=== PATIENT | male | born 1965 | race Caucasian/White ===

== ENCOUNTER → 2019-09-22 15:23 | Outpatient (BNVA) | payer OTHER, SELFPAY | PROVIDERS: Family Provider Emergency Medicine Emergency Medical Services; PCP Emergency Medicine Emergency Medical Services; Visit Provider Specialist | DX: R51 Headache (principal); G40.109 Localization-related (focal) (partial) symptomatic epilepsy and epileptic syndromes with simple partial seizures, not intractable, without status epilepticus; G47.33 Obstructive sleep apnea (adult) (pediatric) | CPT/HCPCS: 99214 ==

== ENCOUNTER 2019-09-29 07:11 | Outpatient (CLI) | payer OTHER, SELFPAY ==
--- NOTE | 2019-09-29 07:15 | MR_ITS ---
WS: [id number] MRI BRAIN WITHOUT CONTRAST HISTORY: R56.9 Unspecified convulsions COMPARISON: 12/14/2014 TECHNIQUE: Diffusion imaging, multiplanar T1, T2 and FLAIR imaging obtained. No evidence for acute infarct or hemorrhage. Porter-white matter differentiation is normal. There are a few scattered T2 and FLAIR signal hyperintensities in the periventricular white matter an d subcortical white matter. There are a few more nonspecific white matter signal abnormalities especi ally within the frontal lobes as compared to 12/14/2014. Minimal progression. No signal abnormality in the cary or cerebellum. Symmetric appearance of the temporal lobes with no volume loss or atrophy. Ventricles and extra-axial spaces are normal. No inferior displacement of cerebellar tonsils. The sella turcica and pituitary gland are unremarkabl e. Posterior fossa is also unremarkable. Dural venous sinuses and poarch of Obrien demonstrate no abnormality on this unenhanced studies. Paranasal sinuses: There is some very mild mucoperiosteal thickening throughout the sinus cavities. N o air-fluid levels. Mastoid air cells: Normal. Calvarium and scalp: Intact. MR/MR head wo con* [id number] IMPRESSION: 1. No acute infarct or hemorrhage. 2. Nonspecific FLAIR and T2 signal hyperintensities are minimal but mildly inc reased since 12/14/2014. Probably on the basis of microvascular ischemic disease .
== END 2019-09-29 07:12 | disposition home or self-care (01) ==
LOC: RADSHAW 07:13
PROVIDERS: Family Provider Emergency Medicine Emergency Medical Services; PCP Emergency Medicine Emergency Medical Services; Visit Provider Specialist
DX: R56.9 Unspecified convulsions (principal)
CPT/HCPCS: 70551

== ENCOUNTER 2019-12-30 09:55 | Emergency (ER) | payer OTHER, SELFPAY ==
[2019-12-30 09:58] VITALS: BP 139/63; PULSE 78; RESP 18; TEMP 36.6; O2SAT 94; BMI 36.5
--- NOTE | 2019-12-30 10:05 | ECG_ITS ---
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 Measurements Intervals [place] Rate: 75 P: 58 IA: 198 QRS: 86 QRSD: 104 T: 69 QT: 389 QTc: 435 Interpretive Statements SINUS RHYTHM Compared to ECG 01/29/2019 10:57:47 Sinus bradycardia no longer present Indeterminate axis no longer present Electronically Signed On 12-30-2019 18:50:27 CDT by Yuliet Almendarez M.D. [email or web address].RF Biocidics/store/NU/[id number] f
--- NOTE | 2019-12-30 10:06 | XRR_ITS ---
PROCEDURE INFORMATION: Exam: XR Chest, 1 View Exam date and time: 12/30/2019 10:30 AM Age: 54 years old Clinical indication: Type not specified; Patient HX: C/O chest pain/tightness; Additional info: Cp TECHNIQUE: Imaging protocol: XR of the chest Views: 1 view. COMPARISON: CR Chest 1 [place] [id number] 01/29/2019 11:51 AM FINDINGS: Lungs: Unremarkable. No consolidation. Pleural space: Unremarkable. No pleural effusion. No pneumothorax. Heart/Mediastinum: Unremarkable. No cardiomegaly. Bones/joints: Unremarkable. No interval changes seen comparing to prior XR/XR chest 1V portable [id number] IMPRESSION: No acute findings.
--- NOTE | 2019-12-30 10:06 | W.ED.CHESTPA ---
HPI - Chest Pain General: Chief Complaint: Chest Pain Stated Complaint: CHEST TIGHTNESS Time Seen by Provider: 12/30/19 10:01 History of Present Illness: HPI narrative: Patient has some high blood pressure last night and while he has some go to be able to get his blood pressure checked. He says at the [place] [facility] this morning has some chest tightness they did an EKG which was negative gave him an aspirin 325. Called the ambulance and sent him up here. Patient says he was without tightness or pain presently feels fine has no difficulty MD complaint: chest discomfort Pertinent past history: other (Hypertension) Onset (ago): minute(s) Timing of current episode: now resolved Prior episodes: No Onset: during rest Pain location: other (Tightness in chest no shortness of breath) Pain radiation: none Severity: mild Quality: tightness Relieving factors: other (Aspirin) Exacerbating factors: nothing Associated symptoms: Reports diaphoresis (Was diaphoretic at the [facility] denies any nausea or vomiting); Deny abdominal pain, dyspnea, nausea or vomiting Treatment prior to arrival: aspirin Review of Systems Const: Reports: diaphoresis (Was diaphoretic at the [facility] denies any nausea or vomiting) Eyes: Denies: change in vision or blurry vision ENMT: Denies: throat pain or nasal congestion Card: Reports: other (Chest tightness this morning at the [facility]); Denies: chest pain or dyspnea on exertion Resp: Denies: dyspnea, productive cough or non-productive cough GI: Denies: abdominal pain, nausea or vomiting : Denies: difficulty urinating Musc: Denies: extremity pain Skin/Breast: Denies: rash Neuro: Denies: headache(s) Psych: Denies: anxiety or depression Tanner/Lymph: Denies: easy bruising PFS ED PFSH: Social History Smoking and tobacco status: never smoked Alcohol intake: never Physical Exam Const: COMMON NORMALS: no acute distress, average body habitus and patient oriented x3 HENMT: COMMON NORMALS: normocephalic HEAD & SCALP: normal to inspection and normocephalic FACE & SINUS: normal facial exam Eye: COMMON NORMALS: conjunctivae normal GENERAL EYE: appearance normal, both eyes and all related structures CONJUNCTIVA: Yes conjunctivae normal Neck/C-Spine: COMMON NORMALS: no JVD Chest: COMMONS NORMALS: normal inspection of the chest Resp: COMMON NORMALS: normal respiratory effort and clear to auscultation bilaterally AUSCULTATION: clear to auscultation bilaterally Cardio: COMMON NORMALS: no JVD, regular rate and regular rhythm RATE: regular rate RHYTHM: regular rhythm GI: COMMON NORMALS: Normal to inspection, nondistended, normoactive bowel sounds present Extremity: COMMON NORMALS: normal to inspection and full ROM Neuro: COMMON NORMALS: patient oriented x3 Course Vital Signs: Vital signs: Vital Signs Temperature 97.8 F 12/30/19 09:58 Pulse Rate 78 12/30/19 09:58 Respiratory Rate 18 12/30/19 09:58 Blood Pressure 139/63 12/30/19 09:58 Pulse Oximetry 94 12/30/19 09:58 MDM - Chest Pain MDM Narrative: Medical decision making narrative: Heart score is 0-1 patient did opt to stay for second troponin patient declines. Discussed cardiac problems with patient patient and feel he has any. [facility] develop or return here. Lab Data: Labs: Lab Results 12/30/19 12/30/19 12/30/19 Range/Units 10:15 10:15 10:15 WBC 6.7 (4.0-10.0) 10^3/ uL RBC 4.65 (4.1-5.3) 10^6/u L Hgb 14.1 (11.7-16.6) g/dL Hct 42.4 (42.0-52.0) % MCV 91.2 (80-94) fL MCH 30.3 (28.0-34.0) pg MCHC 33.3 (30.0-36.0) g/dL RDW 12.7 (12.1-15.1) % Plt Count 267 (130-400) 10^3/c mm MPV 9.1 (7.4-10.4) fL Neut % (Auto) 52.0 % Lymph % (Auto) 37.9 % [place] % (Auto) 7.3 % Eos % (Auto) 1.9 % Baso % (Auto) 0.6 % Neut # (Auto) 3.49 (1.8-7.7) 10^3/u L Lymph # (Auto) 2.6 (0.8-4.8) 10^3/u L [place] # (Auto) 0.5 (0.2-0.9) 10^3/u L Eos # (Auto) 0.1 (0.0-0.8) 10^3/u L Baso # (Auto) 0.0 (0.0-0.1) 10^3/u L Nucleated RBC % (a uto) 0 % Nucleated RBCs # 0.0 /100WBC D-Dimer (0-0.59) ug/mIFE U Sodium 140 (136-145) mmol/L Potassium 4.8 (3.5-5.1) mmol/L Chloride 103 (98-107) mmol/L Carbon Dioxide 29 (22-29) mmol/L Anion Gap 12.8 (5-19) BUN 14 (6-20) mg/dL Creatinine 1.1 (0.7-1.2) mg/dL GFR Calculation 70.3 L (90-130) mL/min Glucose 143 H (65-115) mg/dL Calculated Osmolal ity 289 (285-295) mOsm/k g Calcium 9.9 (8.5-10.5) mg/dL Total Bilirubin 0.2 (0.15-1.2) mg/dL AST 21 (0-40) U/L ALT 30 (0-41) U/L Alkaline Phosphata se 180 H (40-130) IU/L Troponin T Baselin e 6 (0-15) ng/L Total Protein 6.8 (6.6-8.7) g/dL Albumin 4.4 (3.5-5.2) g/dL Globulin 2.4 (1.3-4.6) g/dL 12/30/19 Range/Units 10:15 WBC (4.0-10.0) 10^3/ uL RBC (4.1-5.3) 10^6/u L Hgb (11.7-16.6) g/dL Hct (42.0-52.0) % MCV (80-94) fL MCH (28.0-34.0) pg MCHC (30.0-36.0) g/dL RDW (12.1-15.1) % Plt Count (130-400) 10^3/c mm MPV (7.4-10.4) fL Neut % (Auto) % Lymph % (Auto) % [place] % (Auto) % Eos % (Auto) % Baso % (Auto) % Neut # (Auto) (1.8-7.7) 10^3/u L Lymph # (Auto) (0.8-4.8) 10^3/u L [place] # (Auto) (0.2-0.9) 10^3/u L Eos # (Auto) (0.0-0.8) 10^3/u L Baso # (Auto) (0.0-0.1) 10^3/u L Nucleated RBC % (a uto) % Nucleated RBCs # /100WBC D-Dimer <= 0.27 (0-0.59) ug/mIFE U Sodium (136-145) mmol/L Potassium (3.5-5.1) mmol/L Chloride (98-107) mmol/L Carbon Dioxide (22-29) mmol/L Anion Gap (5-19) BUN (6-20) mg/dL Creatinine (0.7-1.2) mg/dL GFR Calculation (90-130) mL/min Glucose (65-115) mg/dL Calculated Osmolal ity (285-295) mOsm/k g Calcium (8.5-10.5) mg/dL Total Bilirubin (0.15-1.2) mg/dL AST (0-40) U/L ALT (0-41) U/L Alkaline Phosphata se (40-130) IU/L Troponin T Baselin e (0-15) ng/L Total Protein (6.6-8.7) g/dL Albumin (3.5-5.2) g/dL Globulin (1.3-4.6) g/dL Discharge Plan Discharge Prescriptions: No Action aripiprazole [Abilify] 5 mg tablet 5 mg PO DAILY RF: 0 primidone 250 mg tablet 250 mg PO TID RF: 0 ascorbic acid (vitamin C) 500 mg capsule PO RF: 0 bupropion HCl [Wellbutrin SR] 150 mg tablet sustained-release 12 hr 150 mg PO BID RF: 0 Complete Multivitamin Tablet 1 tab PO DAILY RF: 0 venlafaxine [Effexor XR] 150 mg capsule,extended release 24hr 150 mg PO DAILY Qty: 30 RF: 5 levetiracetam [Keppra] 750 mg tablet 750 mg PO BID Qty: 60 RF: 5 cyclobenzaprine 10 mg tablet 10 mg PO TID PRN (Reason: muscle spasm) Qty: 20 RF: 0 simvastatin 20 mg tablet 40 mg PO DAILY RF: 0 Coding Level of Care Code ED Geospatial Extractor Analysis for Chg Fwd Exam Comprehensive
[2019-12-30 10:24] LABS: Basophils % 0.6 %; Eosinophils # 0.1 10^3/uL (0.0-0.8); Eosinophils % 1.9 %; Hematocrit 42.4 % (42.0-52.0); Hemoglobin 14.1 g/dL (11.7-16.6); Lymphocytes # 2.6 10^3/uL (0.8-4.8); Lymphocytes % 37.9 %; Mean Corpuscular HGB Conc 33.3 g/dL (30.0-36.0); Mean Corpuscular Hemoglobin 30.3 pg (28.0-34.0); Mean Corpuscular Volume 91.2 fL (80-94); Mean Platelet Volume 9.1 fL (7.4-10.4); Monocytes # 0.5 10^3/uL (0.2-0.9); Monocytes % 7.3 %; Neutrophils # 3.49 10^3/uL (1.8-7.7); Nucleated Red Blood Cells % 0 %; Platelet Count 267 10^3/cmm (130-400); Red Blood Count 4.65 10^6/uL (4.1-5.3); Red Cell Distribution Width 12.7 % (12.1-15.1); White Blood Count 6.7 10^3/uL (4.0-10.0)
[2019-12-30 10:38] LABS: D Dimer <= 0.27 ug/mIFEU (0-0.59)
[2019-12-30 10:42] LABS: Alanine Aminotransferase 30 U/L (0-41); Albumin Level 4.4 g/dL (3.5-5.2); Alkaline Phosphatase 180 IU/L (40-130); Anion Gap 12.8 (5-19); Aspartate Amino Transferase 21 U/L (0-40); Blood Urea Nitrogen 14 mg/dL (6-20); Calcium 9.9 mg/dL (8.5-10.5); Carbon Dioxide 29 mmol/L (22-29); Chloride 103 mmol/L (98-107); Globulin 2.4 g/dL (1.3-4.6); Glomerular Filtration Rate 70.3 mL/min (90-130); Glucose 143 mg/dL (65-115); Osmolality Calculated 289 mOsm/kg (285-295); Potassium 4.8 mmol/L (3.5-5.1); Sodium 140 mmol/L (136-145); Total Bilirubin 0.2 mg/dL (0.15-1.2); Total Protein 6.8 g/dL (6.6-8.7)
[2019-12-30 10:44] LABS: Troponin(5th) Baseline 6 ng/L (0-15)
[2019-12-30 11:00] VITALS: BP 139/63; PULSE 77; RESP 20; O2SAT 95
--- NOTE | 2019-12-30 11:08 | PC.NURSE ---
report received from [facility]
== END 2019-12-30 11:20 | disposition home or self-care (01) ==
PROVIDERS: Emergency Provider Nurse Practitioner Family; PCP Emergency Medicine Emergency Medical Services
DX: R07.9 Chest pain, unspecified (principal)
CPT/HCPCS: 12345; 36415; 71045; 80053; 84484; 85025; 85378; 93005; 99283; 99284

== ENCOUNTER → 2020-03-17 15:55 | Outpatient (BNVA) | payer OTHER, SELFPAY | PROVIDERS: PCP Emergency Medicine Emergency Medical Services; Visit Provider Internal Medicine | DX: R06.02 Shortness of breath (principal); R42 Dizziness and giddiness; E11.9 Type 2 diabetes mellitus without complications; G47.33 Obstructive sleep apnea (adult) (pediatric); I10 Essential (primary) hypertension; R07.9 Chest pain, unspecified | CPT/HCPCS: 80048; 84439; 84443 ==

== ENCOUNTER 2020-03-31 09:36 | Outpatient (CLI) | payer OTHER, SELFPAY ==
[2020-03-31 10:06] VITALS: BMI 36.5
--- NOTE | 2020-03-31 10:07 | ECG_ITS ---
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 Interpretive Statements NAME OF STUDY: LEXISCAN SESTAMIBI STRESS TEST INDICATION: [Chest Pain] Procedure: The baseline blood pressure was 144/85 mmHg with a heart rate of 67 bpm. The electrocardiogram showed normal sinus rhythm with normal ST and T's. The Lexiscan was infused for a duration of 20 seconds. A total of 0.4 mg of Lexiscan was infused. The stress phase was continued for a total of 5 minutes. Heart rate at end of stress phase was 71 bpm, with a blood pressure 151/79 mmHg. The EKG at the peak infusion revealed sinus rhythm with no significant ST-T wave changes. Sestamibi was injected 20 seconds after Lexiscan infusion. Blood pressure at the end of recovery phase was 151/86 mmHg with a heart rate of 72 bpm. No significant EKG changes during recovery phase. Conclusion: 1. Normal EKG response to Lexiscan infusion. 2. No Lexiscan induced chest pain or cardiac arrhythmia. 3. Normal blood pressure and heart rate response. 4. Sestamibi/sestamibi perfusion scan pending; see separate report. Electronically Signed On 03-31-2020 18:54:36 INTENSIVE CARE UNIT NURSE by Jesus Chau M.D. [id number]
--- NOTE | 2020-03-31 10:07 | NMCV_ITS ---
NM eliezer perf SPECT r/s* [id number] Tray Ying Age: 55 Gender: M : 1965 Exam Date: 03/31/2020 10:07 Ordering Phys: Jesus Chau M.D ([email or web address]) Technologist: BRITTANY Moser Exam Location: [facility] Indications: CHEST PAIN STRESS TEST [facility] IMAGE PROTOCOL Rest/Stress 1 Lexiscan Day Radiopharmaceutical Dose (mCi) Administration Site Administered by Rest: Tc-99m 11.0 IV BRITTANY Hi Sestamibi Stress:Tc-99m 32.5 IV BRITTANY Moser Sestamibety Rest: 31-Mar-2020 60 Discovery 630 Stress: 31-Mar-2020 30 Discovery 630 0.4mg Lexiscan. Images obtained in supine and prone position. SPECT RESULTS Technical Quality: Excellent Raw Data Analysis: Normal Image Corrections: No attenuation or motion correction applied Summed Stress Score: 0 Summed Rest Score: 0 Summed Difference Score: 0 PERFUSION FINDINGS There is homogenous uptake of radiotracer throughout the myocardium. No evidence of ischemia is noted. FUNCTIONAL RESULTS (calculated via Gated SPECT) Stress Image LV EF (%): 65 Stress EDV (mL):132 TID: 1.04 Stress ESV (mL):46 FUNCTIONAL FINDINGS: There is normal left ventricular systolic function. IMPRESSIONS 1. Normal myocardial perfusion imaging. No evidence of ischemia is noted. 2. LV systolic function is normal with EF of 65%. Jesus Chau MD (Electronically Signed) Final Date: 31 March 2020 16:47 S
[2020-03-31] MEDS: regadenoson 0.4 Mg/5 ml Syringe IVP (12:17)
[2020-03-31 12:31] VITALS: BP 151/86; PULSE 72
== END 2020-03-31 09:37 | disposition home or self-care (01) ==
LOC: RAD 09:43 → CDL 10:06
PROVIDERS: PCP Emergency Medicine Emergency Medical Services; Visit Provider Internal Medicine
DX: R07.9 Chest pain, unspecified (principal)
CPT/HCPCS: 78452; 93017; A9500; J2785

== ENCOUNTER → 2020-04-27 16:39 | Outpatient (BNVA) | payer OTHER, SELFPAY | PROVIDERS: PCP Emergency Medicine Emergency Medical Services; Visit Provider Internal Medicine | DX: Z20.828 Contact with and (suspected) exposure to other viral communicable diseases (principal) | CPT/HCPCS: 87635 ==

== ENCOUNTER 2020-05-02 08:09 | Day surgery (SDC) | payer OTHER, SELFPAY ==
[2020-04-27 10:36] VITALS: BMI 34.9
[2020-05-02 08:30] VITALS: BP 111/67; PULSE 67; RESP 18; TEMP 36.4; O2SAT 97
[2020-05-02] MEDS: sodium chloride 0.9% 1,000 ML 30 ML IV (08:43)
[2020-05-02 08:47] LABS: Glucose Point of Care 168 mg/dL (70-110)
--- NOTE | 2020-05-02 08:51 | ANES.PREANE2 ---
Pre-Anesthetic Assessment Pre-Anesthetic Assessment: Height/Weight: Height 1.73 m Weight 104.326 kg Temp Pulse Resp BP Pulse Ox 97.6 F 67 18 111/67 97 05/02/20 08:30 05/02/20 08:30 05/02/20 08:30 05/02/20 08:30 05/02/20 08:30 Preop Diagnosis: screening Proposed Procedure: Operation Date: 05/02/20 09:15 Proposed Procedures p Colonoscopy 90206 Z12.11(Not Applicable) - Demetrio Marrero MD Familial anesthetic complications: None Was Beta Melani taken within 24 hours: Yes Last intake: Intake Last Liquid Date 05/01/20 Last Liquid Time 20:00 Last Solid Date 04/30/20 Last Solid Time 20:00 Social: Social History: Tobacco (chews tobacco) and No alcohol Exam: Pre-Anes Outpt Exam: alert, oriented x 3, clear to auscultation bilaterally and regular rate & rhythm Airway: Cervical ROM: WNL MP: 4 Dentition: False Pulmonary: Pulmonary: Sleep apnea CV/HEM: CV/HEM: Angina (Stable) and HTN Comments: Hx chest pains - stress test obtained, negative for ischemia Metabolic: Metabolic: Hyperlipidemia Neuropsych: Neuropsych: Seizure Anesthetic Plan: ASA status: 3 Anesthesia: MAC Risk of > 500 ml blood loss (7ml/kg in children): No Meds/Allergies Current Medications: Current Medications Generic Name Dose Route Start Last Admin Trade Name Freq PRN Reason Stop Dose Admin Sodium Chloride 1,000 mls @ 30 ml s/hr 05/02/20 08:30 05/02/20 08:43 Sodium Chloride 0.9% IV 30 mls/hr .Q24H LAMONT Administration PFSH Anesthesia PFSH: Medical History (Updated 03/20/20 @ 18:24 by Jesus Chau M.D) Diabetes Hypertension Obstructive sleep apnea Secondarily generalized seizures Temporal lobe epilepsy Surgical History History of back surgery Family History (Updated 03/20/20 @ 18:20 by Jesus Chau M.D) Grandfather Stroke Social History Smoking and tobacco status: never smoked Alcohol intake: never History of recent travel: No Data Anesthesia Other Labs: Laboratory Results - last 48 hr 05/02/20 08:41 POC Glucose 168 H Cardiac Studies: No Data to Display
--- NOTE | 2020-05-02 09:13 | P.HP_ITS ---
Same Day Surgery H&P Indication for Procedure/HPI DATE OF PROCEDURE: May 02, 2020 CHIEF COMPLAINT/INDICATIONFOR SURGICAL PROCEDURE: Screening for colon cancer PREOP DIAGNOSIS: screening PLANNED PROCEDRUE: Operation Date: 05/02/20 09:15 Proposed Procedures p Colonoscopy 96060 Z12.11(Not Applicable) - Demetrio Marrero MD Medications/Allergies* Home Medications Medication Instructions Recorded Confirmed Type aripiprazole 5 mg tablet 5 mg PO DAILY 09/22/19 05/02/20 History ascorbic acid (vitamin C) 500 mg 1,000 mg PO DAILY 09/22/19 05/02/20 History capsule bupropion HCl 150 mg tablet,12 hr 150 mg PO BID 09/22/19 05/02/20 History sustained-release multivitamin,hr-gsch-vrmrgoaj 1 tab PO DAILY 09/22/19 04/27/20 History primidone 250 mg tablet 250 mg PO TID 09/22/19 04/27/20 History simvastatin 20 mg tablet 40 mg PO DAILY tab 09/22/19 04/27/20 History aspirin 325 mg tablet 325 mg PO DAILY 03/17/20 05/02/20 History duloxetine 60 mg capsule,delayed 60 mg PO DAILY 03/17/20 05/02/20 History release magnesium oxide 400 mg PO BID 03/17/20 05/02/20 History metformin 500 mg tablet 1,000 mg PO DAILY tab 03/17/20 05/02/20 History potassium citrate 10 mEq (1,080 2,160 mg PO BID 03/17/20 04/27/20 History mg) tablet,extended release Allergies/Adverse Reactions Allergy/AdvReac Type Severity Reaction Status Date / Time Penicillins Allergy RASH Verified 03/17/20 15:08 Current Medications: Generic Name Dose Route Start Last Admin Trade Name Freq PRN Reason Stop Dose Admin Sodium Chloride 1,000 mls @ 30 mls/hr 05/02/20 08:30 05/02/20 08:43 Sodium Chloride 0.9% IV 30 mls/hr .Q24H LAMONT Administration Pertinent History/Comorbid Conditions* Medical History (Updated 03/20/20 @ 18:24 by Jesus Chau M.D) Diabetes Hypertension Obstructive sleep apnea Secondarily generalized seizures Temporal lobe epilepsy Surgical History (Updated 03/20/20 @ 18:19 by Jesus Chau M.D) History of back surgery Family History (Updated 03/20/20 @ 18:20 by Jesus Chau M.D) Stroke Grandfather Social History Smoking and tobacco status: never smoked Alcohol intake: never History of recent travel: No Pertinent Exam Findings alert, oriented x 3, clear to auscultation bilaterally, regular rate & rhythm, operative site marked and procedure specific exam findings Recommendations Surgery/Procedure today Coding Level of Care Code Acute Cash Posting Specialist for Matti Monroe
--- NOTE | 2020-05-02 09:13 | W.PM.OPSUD ---
Surgery/Procedure H&P Update DATE OF PROCEDURE: May 02, 2020 PREOP DIAGNOSIS: screening PLANNED PROCEDURE: Operation Date: 05/02/20 09:15 Proposed Procedures p Colonoscopy 10951 Z12.11(Not Applicable) - Demetrio Marrero MD
[2020-05-02 10:15] VITALS: BP 106/57; PULSE 55; RESP 18; TEMP 36.2; O2SAT 95
[2020-05-02 10:28] VITALS: BP 117/62; PULSE 54; RESP 16; O2SAT 94
--- NOTE | 2020-05-02 18:37 | ANE.PACU2 ---
Inpatient post-anesthesia follow up: Airway intact: Yes Vital signs: Temperature 97.1 F Pulse Rate 54 Respiratory Rate 16 Blood Pressure 117/62 Pulse Oximetry 94 Oxygen Delivery Me thod Room Air Oxygen Flow Rate Fraction of Inspir ed Oxygen Hydration adequate: Yes Nausea and vomiting: No Pain level: 1 Mental status: Baseline
== END 2020-05-02 10:47 | disposition home or self-care (01) ==
PROVIDERS: PCP Emergency Medicine Emergency Medical Services; Visit Provider Internal Medicine
PROC: 0DJD8ZZ Inspection of Lower Intestinal Tract, Via Natural or Artificial Opening Endoscopic (ICD-10-PCS; CPT 45378; principal; 2020-05-02 09:15)
DX: Z12.11 Encounter for screening for malignant neoplasm of colon (principal); Z79.82 Long term (current) use of aspirin; E11.9 Type 2 diabetes mellitus without complications; I10 Essential (primary) hypertension; G47.33 Obstructive sleep apnea (adult) (pediatric); D12.2 Benign neoplasm of ascending colon; F17.220 Nicotine dependence, chewing tobacco, uncomplicated; G47.30 Sleep apnea, unspecified; E78.5 Hyperlipidemia, unspecified
CPT/HCPCS: 12345; 36416; 45385; 82962; J2704; J7030

== ENCOUNTER → 2020-05-10 10:31 | Outpatient (BNVA) | payer OTHER, SELFPAY | PROVIDERS: PCP Emergency Medicine Emergency Medical Services; Visit Provider Nurse Practitioner Family | DX: R68.89 Other general symptoms and signs (principal) | CPT/HCPCS: 87400 ==

== ENCOUNTER → 2020-05-14 10:36 | Outpatient (BNVA) | payer OTHER, SELFPAY | PROVIDERS: PCP Emergency Medicine Emergency Medical Services; Visit Provider Nurse Practitioner | DX: B34.9 Viral infection, unspecified (principal); Z12.11 Encounter for screening for malignant neoplasm of colon | CPT/HCPCS: 87635 ==

== ENCOUNTER 2021-01-11 11:07 | Emergency (ER) | payer OTHER, SELFPAY ==
[2021-01-11 11:10] VITALS: BP 124/59; PULSE 68; RESP 18; TEMP 36.6; O2SAT 96; BMI 31.9
[2021-01-11 11:21] VITALS: O2SAT 95
--- NOTE | 2021-01-11 11:21 | CT_ITS ---
WS: [id number] CT ANGIOGRAM CEREBRAL AND CAROTID ARTERIES HISTORY: Symptoms of acute CVA TECHNIQUE: CT angiogram is performed of the carotid and cerebral arteries. During arterial injection imaging is obtained from the skull vertex to the aortic arch in 1.25 mm imaging. Coronal and sagittal reformats are submitted. Additional multi planar reformats of the carotid and cerebral arteries are submitted, MIP imaging also reviewed. NASCET criteria utilized. [facility] at least one of these dose optimization techniques: automated exposure control; mA and/or kV adjust ment per patient size (includes targeted exams where dose is matched to clinical indication); or iter ative reconstruction. CONTRAST: Omnipaque 350; 95 mL IV. DLP: 2407.29 mGy-cm. COMPARISON: None available. Carotid Angiogram: Right carotid: Common carotid artery: Arises normally from the innominate artery. No significant plaque or stenosis. Internal carotid artery: No plaque or stenosis. External carotid artery: Patent. Left carotid: Common carotid artery: Arises normally from the aorta. No significant plaque or stenosis. Internal carotid artery: No plaque or stenosis. External carotid artery: Patent. Right vertebral artery: RIGHT vertebral artery is dominant and patent. Left vertebral artery: Very small caliber LEFT vertebral artery throughout its course but is patent. Subclavian arteries: No stenosis or significant abnormality. Upper thorax: Normal. Thyroid gland: Normal. Osseous structures: Mild straightening of the normal cervical lordosis. CEREBRAL ANGIOGRAM: Intracranial vertebral arteries: Small caliber but patent LEFT vertebral artery. RIGHT vertebral raoul ry is dominant. Basilar artery: No significant stenosis or occlusion. No aneurysm. Intracranial Internal carotid arteries: Demonstrates no significant stenosis or plaque. Middle cerebral arteries: Normal. Anterior cerebral arteries and ACOM: RIGHT A1 segment is absent or very hypoplastic. Dominant LEFT A1 segment. Posterior cerebral arteries and PCOM's: Posterior cerebral arteries are patent. The LEFT P-comm is ve ry poorly visualized and may be absent or hypoplastic. RIGHT P-comm is normal. Dural venous sinuses are normally enhancing. Mastoid air cells: Normal. Paranasal sinuses: Normal. Calvarium: Normal. CT/CT angio headneck* [id number] IMPRESSION: 1. Normal carotid arteries. 2. Hypoplastic or absent RIGHT A1 segment and LEFT posterior communicating art rafiq. Probably normal variants. 3. No acute thrombus or occlusions of the middle cerebral arteries. 4. Very small caliber LEFT vertebral artery but it is patent.
--- NOTE | 2021-01-11 11:21 | ECG_ITS ---
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
--- NOTE | 2021-01-11 11:21 | CT_ITS ---
WS: [id number] CT HEAD NONCONTRAST HISTORY: Symptoms of Acute Stroke, left-sided weakness. TECHNIQUE: Contiguous axial imaging performed through the brain in 2.5 mm imaging. Bone and soft tiss ue windows. Sagittal and coronal reformats reviewed. All CT scans at [facility] use at least one of these dose optimization techniques: automated exposure control; mA and/or kV adjustment per pa tient size (includes targeted exams where dose is matched to clinical indication); or iterative recon struction. DLP: 937.50 mGy-cm. COMPARISON: 01/29/2019 No acute intracranial hemorrhage, midline shift or mass effect. Very mild atrophy and chronic ischemic disease. No acute or subacute area of edema or loss of fortune-wh ite matter differentiation. Ventricles: Normal size with no hydrocephalus. Paranasal sinuses: As visualized are clear. Mastoid air cells: Well pneumatized. Calvarium and scalp: Skull is intact with no soft tissue edema or swelling. CT/CT head wo con* [id number] IMPRESSION: 1. No acute intracranial hemorrhage or edema. 2. Mild chronic microvascular ischemic disease. Notified Rickey Vivar DO at 01/11/2021 11:29 AM.
[2021-01-11] MEDS: iohexol 350 mg/mL 100 mL Btl IV (11:28)
[2021-01-11 11:33] LABS: Basophils % 0.5 %; Eosinophils # 0.2 10^3/uL (0.0-0.8); Eosinophils % 2.6 %; Hematocrit 39.4 % (42.0-52.0); Hemoglobin 13.1 g/dL (11.7-16.6); Lymphocytes % 29.4 %; Mean Corpuscular HGB Conc 33.2 g/dL (30.0-36.0); Mean Corpuscular Hemoglobin 30.7 pg (28.0-34.0); Mean Corpuscular Volume 92.3 fl (80-94); Mean Platelet Volume 9.4 fL (7.4-10.4); Monocytes # 0.4 10^3/uL (0.2-0.9); Monocytes % 6.2 %; Neutrophils # 4.06 10^3/uL (1.8-7.7); Nucleated Red Blood Cells % 0 %; Platelet Count 209 10^3/cmm (130-400); Red Blood Count 4.27 10^6/uL (4.1-5.3); White Blood Count 6.6 10^3/uL (4.0-10.0)
--- NOTE | 2021-01-11 11:33 | W.ED.NEUROSD ---
HPI - Neuro Symptoms/Deficit General: Chief Complaint: Neuro Symptoms/Deficit Stated Complaint: L SIDE WEAKNESs, blurry vision Time Seen by Provider: 01/11/21 11:08 History of Present Illness: HPI Narrative: 55-year-old male presents emergency room from work via EMS. 7:00's morning is looking at his computer screen while at work and started noticing blurry vision progressively worse had a notice a left-sided upper extremity and lower extremity weakness eventually got bad enough he called the emergency room by the time he arrived here he had a little bit of residual ataxia but mostly resolved. Patient is diabetic and hypertensive. He is on metoprolol and Metformin. He has no recent medication changes no history of stroke or heart disease. Patient was at approximately 4 hours since onset of symptoms Onset (ago): hour(s) Last Observed Normal: 12:39 Location: left arm and left leg History of same: No Severity: moderate Quality: weak Relieving factors: time Exacerbating factors: none Context: gradual onset On Anticoagulants: No Associated symptoms: Deny chest pain, cough, diaphoresis, fevers/chills, headache(s), anorexia, malaise, nausea, seizures, short of breath, syncope, tingling, vertigo, vomiting or weakness Treatments Prior to Arrival: none Review of Systems Const: Denies: malaise or diaphoresis ENMT: Denies: throat pain, ear or mastoid pain, nasal discharge or nasal congestion Card: Denies: chest pain or syncope Resp: Denies: dyspnea, productive cough or non-productive cough GI: Denies: nausea or vomiting : Denies: flank pain, dysuria, urinary frequency or urinary urgency Skin/Breast: Denies: rash or pruritus Neuro: Denies: headache(s) or vertigo PFSH ED PFSH: Medical History Diabetes Hypertension Obstructive sleep apnea Secondarily generalized seizures Temporal lobe epilepsy Surgical History History of back surgery Family History Grandfather Stroke Social History Smoking and tobacco status: never smoked Alcohol intake: never History of recent travel: No NIH stroke score NIHSS: Level Of Consciousness - 1a: 0 Level Of Consciousness Questions - 1b: Both Correct Level Of Consciousness Commands - 1c: Both Correct Best Gaze - 2: Normal Visual Avila - 3: No Visual Loss Facial Palsy - 4: Normal Motor Arm Right - 5: No Drift Motor Arm Left - 5: No Drift Motor Leg Right - 6: No Drift Motor Leg Left - 6: No Drift Limb Ataxia - 7: Present In One Limb Sensory - 8: Normal Best Language - 9: No Aphasia Dysarthia - 10: Normal Extinction And Inattention - 11: 0 Score: Total Score: 1 Physical Exam Const: COMMON NORMALS: no acute distress GENERAL APPEARANCE: cooperative and comfortable ORIENTATION/CONSCIOUSNESS: Yes awake, Yes oriented to person, Yes oriented to place and Yes oriented to time HENMT: COMMON NORMALS: normocephalic, atraumatic and hearing grossly normal bilaterally HEAD & SCALP: normocephalic and atraumatic Neck/C-Spine: COMMON NORMALS: no JVD Resp: COMMON NORMALS: normal respiratory effort, No retractions and No use of accessory muscles Cardio: COMMON NORMALS: no JVD, regular rate, regular rhythm and No murmurs present (Cardio) RATE: regular rate RHYTHM: regular rhythm GI: COMMON NORMALS: Soft to palpation and No hepatosplenomegaly present AUSCULTATION: Yes normoactive bowel sounds PALPATION: Yes Soft to palpation, No Tenderness to palpation present (GI), No Guarding due to palpation present (GI) and Yes No hepatosplenomegaly present Extremity: COMMON NORMALS: normal to inspection, capillary refill normal, no clubbing, cyanosis or edema, no calf tenderness and no pedal edema Neuro: SENSORIUM/ORIENTATION: Yes oriented to person, Yes oriented to place and Yes oriented to time Skin: COMMON NORMALS: no rashes or lesions noted GENERAL SKIN EXAM: no rashes or lesions noted Course Vital Signs: Vital signs: Vital Signs Temperature 98 F 01/11/21 11:10 Pulse Rate 60 01/11/21 12:57 Respiratory Rate 18 01/11/21 12:57 Blood Pressure 115/64 01/11/21 12:57 Pulse Oximetry 97 01/11/21 12:57 MDM - Neuro Symptoms/Deficit MDM Narrative: Medical decision making narrative: All symptoms resolved at this point. Given the difficulty they had with [id number] using the left leg has resolved. Will discharge him home on aspirin return if he has any further problems follow-up with his primary care doctor. Imaging and labs reviewed as on the chart and discussed with patient Lab Data: Labs: Lab Results 01/11/21 01/11/21 01/11/21 Range/Units 11:25 11:25 11:25 WBC 6.6 (4.0-10.0) 10^3/ uL RBC 4.27 (4.1-5.3) 10^6/u L Hgb 13.1 (11.7-16.6) g/dL Hct 39.4 L (42.0-52.0) % MCV 92.3 (80-94) fl MCH 30.7 (28.0-34.0) pg MCHC 33.2 (30.0-36.0) g/dL RDW 13.0 (12.1-15.1) % Plt Count 209 (130-400) 10^3/c mm MPV 9.4 (7.4-10.4) fL Neut % (Auto) 61.0 % Lymph % (Auto) 29.4 % Edwards % (Auto) 6.2 % Eos % (Auto) 2.6 % Baso % (Auto) 0.5 % Neut # (Auto) 4.06 (1.8-7.7) 10^3/u L Lymph # (Auto) 2.0 (0.8-4.8) 10^3/u L Edwards # (Auto) 0.4 (0.2-0.9) 10^3/u L Eos # (Auto) 0.2 (0.0-0.8) 10^3/u L Baso # (Auto) 0.0 (0.0-0.1) 10^3/u L Nucleated RBC % (a uto) 0 % Nucleated RBCs # 0.0 /100WBC PT 14.70 (12.1-14.9) SECO NDS INR 1.12 (0.8-1.2) APTT 32.4 (23.9-36.7) SECO NDS Sodium 135 L (136-145) mmol/L Potassium 4.3 (3.5-5.1) mmol/L Chloride 98 (98-107) mmol/L Carbon Dioxide 29 (22-29) mmol/L Anion Gap 12.3 (5-19) BUN 12 (6-20) mg/dL Creatinine 0.9 (0.7-1.2) mg/dL GFR Calculation 88.3 L (90-130) mL/min Glucose 128 H (65-115) mg/dL Calculated Osmolal ity 281 L (285-295) mOsm/k g Calcium 8.7 (8.5-10.5) mg/dL Total Bilirubin 0.2 (0.15-1.2) mg/dL AST 18 (0-40) U/L ALT 21 (0-41) U/L Alkaline Phosphata se 187 H (40-130) IU/L Total Protein 6.1 L (6.6-8.7) g/dL Albumin 3.9 (3.5-5.2) g/dL Globulin 2.2 (1.3-4.6) g/dL Discharge Plan Discharge Patient Disposition: Home Clinical Impression: Transient cerebral ischemia Condition: Stable Prescriptions: New aspirin 81 mg tablet,delayed release (DR/EC) 81 mg PO DAILY Qty: 30 RF: 0 No Action aripiprazole [Abilify] 5 mg tablet 5 mg PO DAILY RF: 0 primidone 250 mg tablet 750 mg PO DAILY RF: 0 ascorbic acid (vitamin C) 500 mg capsule 1,000 mg PO DAILY RF: 0 bupropion HCl [Wellbutrin SR] 150 mg tablet sustained-release 12 hr 150 mg PO BID RF: 0 simvastatin 20 mg tablet 40 mg PO DAILY RF: 0 metformin 500 mg tablet 500 mg PO BID RF: 0 potassium citrate 10 mEq (1,080 mg) tablet extended release 2,160 mg PO BID RF: 0 magnesium oxide 400 mg magnesium tablet 400 mg PO BID RF: 0 duloxetine [Cymbalta] 60 mg capsule,delayed release(DR/EC) 60 mg PO DAILY RF: 0 levetiracetam [Keppra] 750 mg tablet 750 mg PO BID Qty: 180 RF: 1 metoprolol tartrate 50 mg tablet 50 mg PO BID Qty: 60 RF: 2 multivitamin Tablet 1 tab PO DAILY RF: 0 Discharge Orders: Discharge ED (Routine); Ordered 01/11/21 Ordered By: Rickey Vivar Referrals: Duane Rodriguez DO [Primary Care Provider] - Discharge Diet: Usual diet Discharge Activity: Resume usual activity Patient Instructions: Opioid Safety Activity Restrictions/Additional Instructions: Start aspirin daily. Return to be reevaluated for recurrence of symptoms. Follow-up with your primary care doctor within the week. Coding Level of Care Code ED Advertising Operations Manager for Matti Fwjojo Exam Comprehensive
[2021-01-11 11:46] LABS: INR 1.12 (0.8-1.2)
[2021-01-11 11:47] LABS: Partial Thromboplastin Time 32.4 SECONDS (23.9-36.7)
[2021-01-11 11:50] LABS: Alanine Aminotransferase 21 U/L (0-41); Albumin Level 3.9 g/dL (3.5-5.2); Alkaline Phosphatase 187 IU/L (40-130); Anion Gap 12.3 (5-19); Aspartate Amino Transferase 18 U/L (0-40); Blood Urea Nitrogen 12 mg/dL (6-20); Calcium 8.7 mg/dL (8.5-10.5); Carbon Dioxide 29 mmol/L (22-29); Chloride 98 mmol/L (98-107); Globulin 2.2 g/dL (1.3-4.6); Glomerular Filtration Rate 88.3 mL/min (90-130); Glucose 128 mg/dL (65-115); Osmolality Calculated 281 mOsm/kg (285-295); Potassium 4.3 mmol/L (3.5-5.1); Sodium 135 mmol/L (136-145); Total Bilirubin 0.2 mg/dL (0.15-1.2); Total Protein 6.1 g/dL (6.6-8.7)
[2021-01-11 12:28] VITALS: BP 118/61; PULSE 60; O2SAT 96
[2021-01-11 12:57] VITALS: BP 115/64; PULSE 60; RESP 18; O2SAT 97
== END 2021-01-11 12:53 | disposition home or self-care (01) ==
PROVIDERS: Emergency Provider Family Medicine; PCP Emergency Medicine Emergency Medical Services
DX: G45.9 Transient cerebral ischemic attack, unspecified (principal); Z79.84 Long term (current) use of oral hypoglycemic drugs; E11.9 Type 2 diabetes mellitus without complications; I10 Essential (primary) hypertension
CPT/HCPCS: 70450; 70496; 70498; 80053; 85025; 85610; 85730; 93005; 99284; Q9967

== ENCOUNTER → 2021-02-27 15:33 | Outpatient (BNVA) | payer OTHER, SELFPAY | PROVIDERS: PCP Emergency Medicine Emergency Medical Services; Visit Provider Specialist | DX: G31.84 Mild cognitive impairment of uncertain or unknown etiology (principal); Z86.73 Personal history of transient ischemic attack (TIA), and cerebral infarction without residual deficits; G40.109 Localization-related (focal) (partial) symptomatic epilepsy and epileptic syndromes with simple partial seizures, not intractable, without status epilepticus | CPT/HCPCS: 99214; 99215 ==

== ENCOUNTER → 2021-06-12 16:15 | Outpatient (BNVA) | payer OTHER, SELFPAY | PROVIDERS: PCP Emergency Medicine Emergency Medical Services; Visit Provider Internal Medicine | DX: I10 Essential (primary) hypertension (principal); E11.9 Type 2 diabetes mellitus without complications; R06.02 Shortness of breath; G45.9 Transient cerebral ischemic attack, unspecified; R07.9 Chest pain, unspecified | CPT/HCPCS: 80048; 83880 ==

== ENCOUNTER 2021-07-19 09:09 | Outpatient (CLI) | payer OTHER, SELFPAY ==
--- NOTE | 2021-07-19 09:15 | USCV_ITS ---
Tray Ying Age: 56 Gender: M : 1965 Exam Date: 07/19/2021 10:03 Ordering Phys: Jesus Chau M.D ([email or web address]) Technologist: Simone Carr [place] [facility] [place]: [place] pain BP: 108 / 70 HR: 79 Rhythm: Sinus Technical Quality: Adequate MEASUREMENTS (Male / Female) Normal Values 2D ECHO LV Diastolic Diameter PLAX 4.4 cm 4.2 - 5.9 / 3.9 - 5.3 cm LV Systolic Diameter PLAX 3.0 cm IVS Diastolic Thickness 1.4 cm 0.6 - 1.0 / 0.6 - 0.9 cm IVS Systolic Thickness 1.8 cm LVPW Diastolic Thickness 1.5 cm 0.6 - 1.0 / 0.6 - 0.9 cm LVPW Systolic Thickness 1.5 cm LVOT Diameter 2.0 cm LV Ejection Fraction 2D Teich 62.0 % LV Ejection Fraction MOD 2C 67.3 % LV Ejection Fraction 2C AL 66.6 % LA Diameter 3.4 cm LA Width 2.8 cm LA Height 4.5 cm RA Width 2.6 cm RA Height 4.4 cm Aorta at Sinotubular Diameter 2.4 cm M-MODE Aortic Annulus Diameter 3.0 cm LA Ao Ratio MM 1.2 MV E Point Septal Separation 0.7 cm DOPPLER AV Peak Velocity 134.0 cm/s LVOT Peak Velocity 102.0 cm/s AV Area Cont Eq vti 2.6 cm squared AV Area Cont Eq pk 2.4 cm squared MV Area PHT 3.1 cm squared Mitral E to A Ratio 1.1 MV E' Velocity 44.0 cm/s Mitral E to MV E' Ratio 10.4 Mitral E to LV E' Lateral Ratio 10.0 Mitral E to LV E' Septal Ratio 10.9 Right Atrial Pressure 3.0 mmHg RV Acceleration Time 0.1 s RV Ejection Time 0.3 s RV AcT/ET 0.4 FINDINGS Left Ventricle Normal left ventricular size. LV systolic function is normal with EF of 55-60%. No regional wall motion abnormalities. Diastolic function is normal Right Ventricle The right ventricle is normal in size and function. Right Atrium The right atrium is normal in size. Left Atrium The left atrium is normal in size. Mitral Valve Structurally normal mitral valve without significant stenosis or prolapse. There is trace mitral regurgitation. Aortic Valve Structurally normal aortic valve without significant sclerosis or stenosis. There is mild aortic regurgitation. Tricuspid Valve Structurally normal tricuspid valve without significant stenosis. There is trace regurgitation. Insufficient TR jet to calculate RVSP. Pulmonic Valve Structurally normal pulmonic valve without significant stenosis. There is no pulmonic regurgitation. Pericardium Normal pericardium without effusion. Aorta Normal ascending aorta dimension. CONCLUSIONS LV systolic function is normal with EF 55-60%. Diastolic function is normal. Trace mitral regurgitation, mild aortic regurgitation and trace tricuspid regurgitation noted. No comparison studies are available Jesus Chau MD (Electronically Signed) Final Date: 28 July 2021 11:37 S
== END 2021-07-19 09:10 | disposition home or self-care (01) ==
LOC: RAD 09:11
PROVIDERS: PCP Emergency Medicine Emergency Medical Services; Visit Provider Internal Medicine
DX: R06.02 Shortness of breath (principal); R07.9 Chest pain, unspecified; I08.3 Combined rheumatic disorders of mitral, aortic and tricuspid valves
CPT/HCPCS: 93306

== ENCOUNTER → 2021-09-26 13:17 | Outpatient (BNVA) | payer OTHER, SELFPAY | PROVIDERS: PCP Emergency Medicine Emergency Medical Services; Visit Provider Specialist | DX: G31.84 Mild cognitive impairment of uncertain or unknown etiology (principal); G40.109 Localization-related (focal) (partial) symptomatic epilepsy and epileptic syndromes with simple partial seizures, not intractable, without status epilepticus; Z86.73 Personal history of transient ischemic attack (TIA), and cerebral infarction without residual deficits | CPT/HCPCS: 99214 ==

== ENCOUNTER → 2021-10-13 10:01 | Outpatient (BNVA) | payer OTHER, SELFPAY | PROVIDERS: PCP Emergency Medicine Emergency Medical Services; Visit Provider Internal Medicine | DX: I10 Essential (primary) hypertension (principal); G47.33 Obstructive sleep apnea (adult) (pediatric); E11.9 Type 2 diabetes mellitus without complications; Z79.84 Long term (current) use of oral hypoglycemic drugs | CPT/HCPCS: 99213 ==

== ENCOUNTER 2021-11-02 20:00 | Outpatient (CLI) | payer OTHER, SELFPAY | END 2021-11-02 20:01 | disposition home or self-care (01) | LOC: SLEEP 11-03 08:11 | PROVIDERS: PCP Emergency Medicine Emergency Medical Services; Visit Provider Psychiatry & Neurology Psychiatry | DX: G47.33 Obstructive sleep apnea (adult) (pediatric) (principal) | CPT/HCPCS: 95810 ==

== ENCOUNTER 2022-05-31 22:04 | Emergency (ER) | payer OTHER, SELFPAY ==
[2022-05-31 22:14] VITALS: BP 154/72; PULSE 80; RESP 18; TEMP 36.5; O2SAT 99; BMI 33.4
--- NOTE | 2022-05-31 23:02 | CTR_ITS ---
PROCEDURE INFORMATION: Exam: CT Head Without Contrast Exam date and time: 05/31/2022 11:29 PM Age: 57 years old Clinical indication: Pain; Headache; Patient HX: C/O COLVIN with nausea after having moderna vaccine yesterday. History of epilespy and TIA. ; Additional info: Worst COLVIN of life, nausea TECHNIQUE: Imaging protocol: Computed tomography of the head without contrast. Radiation optimization: All CT scans at this facility use at least one of these dose optimization techniques: automated exposure control; mA and/or kV adjustment per patient size (includes targeted exams where dose is matched to clinical indication); or iterative reconstruction. Other protocol: This patient has received 0 known CTs and 0 known cardiac nuclear medicine studies in the 12 months prior to the current study. COMPARISON: CT head wo con* [id number] 01/11/2021 11:07 AM RADIATION DOSE METRICS: Total DLP (mGy-cm): 1992.88 FINDINGS: Brain: Normal. No hemorrhage. Unremarkable white matter. No mass effect. Cerebral ventricles: No ventriculomegaly. Paranasal sinuses: Visualized sinuses are unremarkable. No fluid levels. Mastoid air cells: Visualized mastoid air cells are well aerated. Bones/joints: Unremarkable. No acute fracture. Soft tissues: Unremarkable. Other findings: Study motion degraded. CT/CT head wo con* [id number] IMPRESSION: No acute intracranial abnormality.
--- NOTE | 2022-05-31 23:02 | ED_ITS ---
Documented by User: SARAH BETH Ivy 05/31/22 23:24 HPI - Headache General: Chief Complaint: Headache Stated Complaint: Headache\Had Covid shot yesterday Time Seen by Provider: 05/31/22 22:13 Source: patient and family Mode of arrival: ambulatory Limitations: no limitations History of Present Illness: Patient is a very nice 57-year-old male with an extensive medical history here for concerns of a severe headache. Patient states he took the first dose of his COVID immunization series yesterday and states by that evening he began developing a headache. He is currently rating his headache at a 10/10 and states it is debilitating. He endorses nausea with no vomiting. Patient tells me he has no history of headaches. He cannot tell me any worsening or alleviating factors to his pain. It does not seem to be affected by position, light, sound. Looking at previous documentation it does look like he was seen by Dr. Mata on 08/2019 for complaints of severe head aches. MD elicited complaint: headache Onset description: gradually Location: generalized Severity: severe Pain scale (0-10): 10 Exacerbating factors: none Relieving factors: nothing Associated symptoms: Reports nausea; Deny chest pain, confusion, fever(s), malaise, rash or vomiting Treatments prior to arrival: acetaminophen and ibuprofen Review of Systems Const: Denies: fever(s), chills, body aches, fatigue or malaise Eyes: Denies: change in vision, blurry vision, blind spots, photophobia or eye discomfort Card: Denies: chest pain Resp: Denies: dyspnea GI: Reports: nausea; Denies: abdominal pain or vomiting Musc: Denies: neck pain Skin/Breast: Denies: rash Neuro: Reports: headache(s); Denies: numbness in extremities, weakness in extremities, sensory changes, lack of coordination, frequent falls, dizziness, vertigo, confusion, behavioral changes, Slurred speech present, difficulty communicating thoughts or seizure- like activity PFS ED PFSH: Medical History Diabetes Hypertension Obstructive sleep apnea Secondarily generalized seizures Temporal lobe epilepsy Surgical History History of back surgery Family History Grandfather Stroke Social History Smoking and tobacco status: never smoked Alcohol intake: never History of recent travel: No Physical Exam Const: COMMON NORMALS: average body habitus, patient oriented x3, no limitations, healthy appearing, alert and well nourished GENERAL APPEARANCE: cooperative and in distress (appears uncomfortable secondary to pain) ORIENTATION/CONSCIOUSNESS: Yes awake, Yes oriented to person, Yes oriented to place and Yes oriented to time HENMT: COMMON NORMALS: normocephalic and atraumatic HEAD & SCALP: normal to inspection, normocephalic and atraumatic FACE & SINUS: normal facial exam Eye: COMMON NORMALS: Equal, round and reactive pupils present and EOMs intact bilaterally GENERAL EYE: appearance normal, both eyes and all related structures and normal light reflex PUPIL: Yes Equal, round and reactive pupils present DIRECT OPHTHALMOSCOPY: Yes normal light reflex Neck/C-Spine: COMMON NORMALS: full ROM, no lymphadenopathy and no meningeal signs Resp: COMMON NORMALS: normal respiratory effort and clear to auscultation bilaterally AUSCULTATION: clear to auscultation bilaterally Cardio: COMMON NORMALS: regular rate and regular rhythm RATE: regular rate RHYTHM: regular rhythm Extremity: COMMON NORMALS: normal to inspection GENERAL: Yes normal exam except as noted Neuro: LOYD COMA SCALE: document GCS findings [place] coma scale eye opening: Spontaneous [place] coma scale verbal response: Orientated [place] coma scale motor response: Obey commands Loyd coma scale total score: 15 COMMON NORMALS: patient oriented x3, CN's II-XII intact bilaterally, moves all extremities, no focal motor deficits, no sensory deficits noted and gait normal SENSORIUM/ORIENTATION: Yes alert, Yes oriented to person, Yes oriented to place and Yes oriented to time MENINGEAL SIGNS: Yes no meningeal signs SPEECH: speech normal GAIT: Yes Normal gait present MOTOR EXAM: 5/5 motor strength present throughout Skin: COMMON NORMALS: no rashes or lesions noted GENERAL SKIN EXAM: no rashes or lesions noted Course Vital Signs: Vital signs: Vital Signs Temperature 97.7 F 05/31/22 22:14 Pulse Rate 80 05/31/22 23:04 Respiratory Rate 18 05/31/22 23:04 Blood Pressure 180/76 05/31/22 23:04 Pulse Oximetry 98 05/31/22 23:04 Oxygen Delivery Me thod 05/31/22 23:04 MDM - Headache Lab Data Radiology Impressions Head CT 05/31/22 23:02 IMPRESSION: No acute intracranial abnormality. Discharge Plan Discharge Patient Disposition: Home Clinical Impression: Headache Condition: Stable Prescriptions: No Action aripiprazole [Abilify] 5 mg tablet 5 mg PO DAILY ascorbic acid (vitamin C) 500 mg capsule 1,000 mg PO DAILY bupropion HCl [Wellbutrin SR] 150 mg tablet sustained-release 12 hr 150 mg PO BID simvastatin 20 mg tablet 40 mg PO DAILY Rx Instructions: TAKE IN THE EVENING metformin 500 mg tablet 500 mg PO BID potassium citrate 10 mEq (1,080 mg) tablet extended release 2,160 mg PO BID magnesium oxide 400 mg magnesium tablet 400 mg PO BID duloxetine [Cymbalta] 60 mg capsule,delayed release(DR/EC) 60 mg PO DAILY Rx Instructions: TAKE IN THE EVENING primidone 250 mg tablet 500 mg PO DAILY Rx Instructions: TAKE IN THE EVENING doxycycline hyclate 100 mg tablet 100 mg PO BID 7 Days Qty: 14 0RF prednisone 20 mg tablet 20 mg PO DAILY Qty: 5 0RF albuterol sulfate [Ventolin HFA] 90 mcg/actuation HFA aerosol inhaler 1 - 2 puff inhalation Q6H PRN (Reason: shortness of breath or wheezing) Qty: 8.5 0RF benzonatate 200 mg capsule 200 mg PO BID PRN (Reason: cough) Qty: 14 0RF metoprolol tartrate 50 mg tablet 50 mg PO BID Qty: 180 3RF levetiracetam [Keppra] 1,000 mg tablet 500 mg PO BID Qty: 180 3RF galantamine 8 mg tablet 8 mg PO BID Qty: 180 3RF Rx Instructions: administer with AM and PM meals multivitamin Tablet 1 tab PO DAILY aspirin 81 mg tablet,delayed release (DR/EC) 81 mg PO DAILY Qty: 30 0RF Discharge Orders: Discharge ED (Routine); Ordered 06/01/22 Ordered By: Rhonda Weems Referrals: Duane Rodriguez DO [Primary Care Provider] - 1-3 days Discharge Diet: Advance as tolerated Discharge Activity: Resume usual activity Patient Instructions: General Headache (ED) Coding Level of Care Code ED Sales Engagement Executive for Chg Fwd Exam Comprehensive Documented by User: Rhonda Weems MD 06/01/22 00:23 HPI - Headache General: Chief Complaint: Headache Stated Complaint: Headache\Had Covid shot yesterday Time Seen by Provider: 05/31/22 22:13 PFSH ED PFSH: Medical History Diabetes Hypertension Obstructive sleep apnea Secondarily generalized seizures Temporal lobe epilepsy Surgical History History of back surgery Family History Grandfather Stroke Social History Smoking and tobacco status: never smoked Alcohol intake: never History of recent travel: No Physical Exam Neuro: LOYD COMA SCALE: document GCS findings [place] coma scale total score: 15 Course Vital Signs: Vital signs: Vital Signs Temperature 97.7 F 05/31/22 22:14 Pulse Rate 80 05/31/22 23:04 Respiratory Rate 18 05/31/22 23:04 Blood Pressure 180/76 05/31/22 23:04 Pulse Oximetry 98 05/31/22 23:04 Oxygen Delivery Me thod 05/31/22 23:04 MDM - Headache Medical Decision Making Patient presents with a headache he does have a long history of headaches this is not the worst headache of his life his head CT here is normal no signs of meningitis or subarachnoid hemorrhage his headache is since resolved with Toradol and Reglan he is stable for discharge he is to follow-up his PCP and return if worsening he understands agrees to plan. Lab Data Radiology Impressions Head CT 05/31/22 23:02
[2022-05-31 23:04] VITALS: BP 180/76; PULSE 80; RESP 18; O2SAT 98
[2022-05-31] MEDS: diphenhydrAMINE 50 mg/mL SDV 1mL IVP (23:16)
[2022-05-31] MEDS: ondansetron 2 mg/ML SDV 2 mL 4 MG IVP (23:16)
[2022-05-31] MEDS: dexamethasone 10 mg/mL INJ 8 MG IV (23:17)
[2022-05-31] MEDS: metoclopramide 5 mg/mL SDV 2 mL 10 MG IVP (23:49)
[2022-05-31] MEDS: ketorolac 30 mg/mL INJ 15 MG IVP (23:49)
[2022-06-01 00:36] VITALS: BP 186/85; PULSE 99; RESP 16; O2SAT 99
== END 2022-06-01 00:39 | disposition home or self-care (01) ==
PROVIDERS: Emergency Provider Emergency Medicine; PCP Emergency Medicine Emergency Medical Services
DX: R51.9 Headache, unspecified (principal); I10 Essential (primary) hypertension; E11.9 Type 2 diabetes mellitus without complications
CPT/HCPCS: 70450; 96374; 96375; 99285; J1100; J1200; J1885; J2405; J2765

== ENCOUNTER → 2022-07-11 09:45 | Outpatient (BNVA) | payer OTHER, SELFPAY | PROVIDERS: PCP Emergency Medicine Emergency Medical Services; Visit Provider Nurse Practitioner Family | DX: I10 Essential (primary) hypertension (principal); Z79.82 Long term (current) use of aspirin | CPT/HCPCS: 99213 ==

== ENCOUNTER → 2023-04-15 12:42 | Outpatient (BNVA) | payer OTHER, SELFPAY | PROVIDERS: PCP Emergency Medicine Emergency Medical Services; Visit Provider Specialist | DX: G40.109 Localization-related (focal) (partial) symptomatic epilepsy and epileptic syndromes with simple partial seizures, not intractable, without status epilepticus (principal); G31.84 Mild cognitive impairment of uncertain or unknown etiology; G43.711 Chronic migraine without aura, intractable, with status migrainosus | CPT/HCPCS: 99214 ==

== ENCOUNTER 2023-05-15 17:42 | Emergency (ER) | payer OTHER, SELFPAY ==
[2023-05-15 17:58] VITALS: BP 178/72; PULSE 91; RESP 17; TEMP 37.2; O2SAT 98; BMI 34.9
--- NOTE | 2023-05-15 18:31 | ED_ITS ---
HPI - COVID 2 General: Chief Complaint: COVID symptoms Stated Complaint: cough, head pain,nausea Time Seen by Provider: 05/15/23 18:23 History of Present Illness: 58-year-old male patient comes in today with cough, fever, body aches, and weakness in bilateral legs. Patient reports symptoms for last 2 to 3 days. Patient was screened for COVID this morning at work and was negative. Patient has a history of diabetes mellitus, high blood pressure, depression, and seizure disorder. Patient's last known seizure was 3 years ago. Patient takes medications routinely. Patient denies any vomiting or diarrhea. COVID 19 common symptoms: positive fever(s), chills, non-productive cough, body aches, headache(s), throat pain and nausea; negative vomiting or diarrhea COVID 19 other sytmptoms: negative chest pain COVID Results: 2 SARS-CoV-2 Antigen (Rapid) negative (Negative) 05/15/23 19:00 SARS-CoV-2 RNA (RT-PCR) Detected (NOT DETECTED) A 05/14/20 10: 36 Nasal/Oral Coronavirus 2019 PCR Not detected 04/27/20 16:39 Review of Systems 2 General: Reports: 10 or more systems reviewed and unremarkable except in HPI and below Const: Reports: fever(s), chills and body aches Eyes: Reports: eye discomfort ENMT: Reports: throat pain Card: Denies: chest pain Resp: Reports: non-productive cough GI: Reports: nausea; Denies: abdominal pain, vomiting, diarrhea or constipation : Denies: difficulty urinating Musc: Reports: back pain and extremity pain Skin/Breast: Denies: rash Neuro: Reports: headache(s) PFSH ED 2 PFSH: Medical History Diabetes Hypertension Obstructive sleep apnea Secondarily generalized seizures Temporal lobe epilepsy Surgical History History of back surgery Family History Grandfather Stroke Social History Smoking and tobacco/nicotine status: never used tobacco/nicotine Alcohol intake: never Substance/Drug Use: never Physical Exam 2 Const: COMMON NORMALS: alert HENMT: COMMON NORMALS: normocephalic HEAD & SCALP: normocephalic Neck/C-Spine: COMMON NORMALS: full ROM Resp: COMMON NORMALS: normal respiratory effort and clear to auscultation bilaterally AUSCULTATION: clear to auscultation bilaterally Cardio: COMMON NORMALS: regular rate and regular rhythm RATE: regular rate RHYTHM: regular rhythm GI: COMMON NORMALS: non-tender Back/Pelvis: COMMON NORMALS: thoracic and lumbar spine normal to inspection Extremity: COMMON NORMALS: no pedal edema Neuro: SENSORIUM/ORIENTATION: Yes alert Skin: COMMON NORMALS: turgor normal GENERAL SKIN EXAM: turgor normal Course 2 Vital Signs: Vital signs: Vital Signs Temperature 99.0 F 05/15/23 17:58 Pulse Rate 91 05/15/23 17:58 Respiratory Rate 17 05/15/23 17:58 Blood Pressure 178/72 05/15/23 17:58 Pulse Oximetry 92 05/15/23 19:03 Oxygen Delivery Me thod Room Air 05/15/23 19:03 MDM - COVID Medical Decision Making Patient presents with illness for 2 to 3 days. Patient tested negative for COVID at his [employer] employer this morning. Patient appears nontoxic. Patient appears in mild pain. Lungs have good air movement throughout. Abdomen soft nontender. No edema is noted in the extremities. Vital signs are normal except for some elevation in blood pressure. Differential diagnosis includes but not limited to pneumonia, influenza, COVID-19, dehydration, electrolyte imbalance. Chest x-ray noted known consolidative velasquez. CBC was unremarkable. Patient was negative for flu and COVID. Patient appears mildly unwell. Believe patient probably most likely has a viral syndrome such as influenza. Recommended treatment for flu. Recommend follow-up as needed and return to the ER for worsening symptoms. Patient and family reported understanding agreed to plan. Lab Data 05/15/23 19:33 05/15/23 19:33 Laboratory Results WBC 7.03 10^3/uL (3.29-11.43) 05/15/23 19:33 RBC 4.20 10^6/uL (3.85-5.65) 05/15/23 19:33 Hgb 13.60 g/dL (11.27-16.99) 05/15/23 19:33 Hct 39.0 % (37-53) 05/15/23 19: MCV 92.9 fl (82-101) 05/15/23 19: MCH 32.4 pg (27-33) 05/15/23 19: MCHC 34.9 g/dL (30-55) 05/15/23 19: RDW 12.4 % (12.1-15.1) 05/15/23 19: Plt Count 193 10^3/cmm (157-399) 05/15/23 19: MPV 9.5 fL (7.4-10.4) 05/15/23 19: Neut % (Auto) 67.1 % 05/15/23 19: Lymph % (Auto) 24.2 % 05/15/23: [place] % (Auto) 7.4 % 05/15/23 19: Eos % (Auto) 0.6 % 05/15/23: Baso % (Auto) 0.4 % 05/15/23: Neut # (Auto) 4.72 10^3/uL (1.8-7.7) 05/15/23 19: Lymph # (Auto) 1.7 10^3/uL (0.8-4.8) 05/15/23 19: [place] # (Auto) 0.5 10^3/uL (0.2-0.9) 05/15/23 19: Eos # (Auto) 0.0 10^3/uL (0.0-0.8) 05/15/23: Baso # (Auto) 0.0 10^3/uL (0.0-0.1) 05/15/23 19: Nucleated RBC % (auto) 0 % 05/15/23: Nucleated RBCs # 0.0 /100WBC 05/15/23 19: Influenza Type A Ag negative (Negative) 05/15/23 19:00 Influenza Type B Ag negative (Negative) 05/15/23 19:00 SARS-CoV-2 Ag (Rapid) negative (Negative) 05/15/23 19:00 2 SARS-CoV-2 Antigen (Rapid) negative (Negative) 05/15/23 19:00 SARS-CoV-2 RNA (RT-PCR) Detected (NOT DETECTED) A 05/14/20 10: 36 Nasal/Oral Coronavirus 2019 PCR Not detected 04/27/20 16:39 XR interpretation done by ED provider, pending radiology final review Discharge Plan Discharge Patient Disposition: Home Clinical Impression: Flu-like symptoms, Viral infection Condition: Stable Prescriptions: No Action aripiprazole [Abilify] 5 mg tablet 5 mg PO DAILY bupropion HCl [Wellbutrin SR] 150 mg tablet sustained-release 12 hr 150 mg PO BID simvastatin 20 mg tablet 40 mg PO DAILY Rx Instructions: TAKE IN THE EVENING metformin 500 mg tablet 500 mg PO BID potassium citrate 10 mEq (1,080 mg) tablet extended release 2,160 mg PO BID magnesium oxide 400 mg magnesium tablet 400 mg PO BID duloxetine [Cymbalta] 60 mg capsule,delayed release(DR/EC) 60 mg PO DAILY Rx Instructions: TAKE IN THE EVENING primidone 250 mg tablet 500 mg PO DAILY Rx Instructions: TAKE IN THE EVENING levetiracetam [Keppra] 1,000 mg tablet 1,000 mg PO BID Qty: 180 3RF amitriptyline 25 mg tablet 25 mg PO DAILY Qty: 90 3RF Rx Instructions: Take at bedtime albuterol sulfate [Ventolin HFA] 90 mcg/actuation HFA aerosol inhaler 1 - 2 puff inhalation Q6H PRN (Reason: shortness of breath or wheezing) Qty: 8.5 0RF benzonatate 200 mg capsule 200 mg PO BID PRN (Reason: cough) Qty: 14 0RF metoprolol tartrate 50 mg tablet 50 mg PO BID Qty: 180 3RF galantamine 8 mg tablet See Rx Instructions .ROUTE .COMPLEX Qty: 180 3RF Dose Instruction: TAKE 1 TABLET TWICE A DAY, ADMINISTER WITH MORNING AND EVENING MEALS Rx Instructions: TAKE 1 TABLET TWICE A DAY, ADMINISTER WITH MORNING AND EVENING MEALS multivitamin Tablet 1 tab PO DAILY aspirin 81 mg tablet,delayed release (DR/EC) 81 mg PO DAILY Qty: 30 0RF Discharge Orders: Discharge ED (Routine); Ordered 05/15/23 Ordered By: Hayden Tucker Referrals: Duane Rodriguez DO [Primary Care Provider] - Discharge Diet: Usual diet Discharge Activity: Increase activity as tolerated Patient Instructions: Influenza (ED) Activity Restrictions/Additional Instructions: Home and rest. Drink plenty of water and fluids. Follow-up with primary care as needed. Return to ED for worsening symptoms such as severe chest pain, severe shortness of breath, or new concerns. Stand Alone Forms: Work/School Release Coding Level of Care Code ED Breeder Hen Service Technician for Matti Monroe
--- NOTE | 2023-05-15 18:34 | XRR_ITS ---
PROCEDURE INFORMATION: Exam: XR Chest Exam date and time: 05/15/2023 6:38 PM Age: 58 years old Clinical indication: Cough and fever; Additional info: Cough, fever TECHNIQUE: Imaging protocol: Radiologic exam of the chest. Views: 1 view. COMPARISON: CR XR chest 1V portable [id number] 12/30/2019 10:40 AM FINDINGS: Lungs: No focal consolidation. Pleural spaces: No evidence of pneumothorax or pleural effusion. Heart/Mediastinum: Cardiomediastinal silhouette is within normal limits. Bones/joints: No evidence of acute osseous abnormality. XR/XR chest 1V portable [id number] IMPRESSION: 1. No acute cardiopulmonary abnormality.
[2023-05-15 19:03] VITALS: O2SAT 92
[2023-05-15 19:43] LABS: Influenza A by IFA negative (Negative); Influenza B by IFA negative (Negative)
[2023-05-15 19:44] LABS: SARS Covid-2 Antigen negative (Negative)
[2023-05-15 19:52] LABS: Basophils % 0.4 %; Eosinophils % 0.6 %; Lymphocytes # 1.7 10^3/uL (0.8-4.8); Lymphocytes % 24.2 %; Mean Corpuscular HGB Conc 34.9 g/dL (30-55); Mean Corpuscular Hemoglobin 32.4 pg (27-33); Mean Corpuscular Volume 92.9 fl (82-101); Mean Platelet Volume 9.5 fL (7.4-10.4); Monocytes # 0.5 10^3/uL (0.2-0.9); Monocytes % 7.4 %; Neutrophils # 4.72 10^3/uL (1.8-7.7); Neutrophils % 67.1 %; Nucleated Red Blood Cells % 0 %; Platelet Count 193 10^3/cmm (157-399); Red Cell Distribution Width 12.4 % (12.1-15.1); White Blood Count 7.03 10^3/uL (3.29-11.43)
[2023-05-15 20:14] LABS: Alanine Aminotransferase 24 U/L (0-41); Alkaline Phosphatase 149 U/L (40-130); Anion Gap 14.9 (5-19); Aspartate Amino Transferase 18 U/L (0-40); Blood Urea Nitrogen 17 mg/dL (6-20); Calcium 9.5 mg/dL (8.5-10.5); Carbon Dioxide 24 mmol/L (22-29); Chloride 100 mmol/L (98-107); Globulin 2.9 g/dL (1.3-4.6); Glucose 183 mg/dL (65-115); Osmolality Calculated 286 mOsm/kg (285-295); Potassium 3.9 mmol/L (3.5-5.1); Sodium 135 mmol/L (136-145); Total Bilirubin 0.2 mg/dL (0.15-1.2); Total Protein 6.9 g/dL (6.6-8.7)
== END 2023-05-15 20:26 | disposition home or self-care (01) ==
PROVIDERS: Emergency Provider Nurse Practitioner Family; PCP Emergency Medicine Emergency Medical Services
DX: B34.9 Viral infection, unspecified (principal); R05.9 Cough, unspecified
CPT/HCPCS: 36415; 71045; 80053; 85025; 87426; 87804; 99284

== ENCOUNTER → 2024-05-20 08:00 | Outpatient (BNVA) | payer OTHER, SELFPAY | PROVIDERS: PCP Emergency Medicine Emergency Medical Services; Visit Provider Specialist | DX: G40.109 Localization-related (focal) (partial) symptomatic epilepsy and epileptic syndromes with simple partial seizures, not intractable, without status epilepticus (principal); G31.84 Mild cognitive impairment of uncertain or unknown etiology; G43.711 Chronic migraine without aura, intractable, with status migrainosus; G47.52 REM sleep behavior disorder | CPT/HCPCS: 99214 ==

== ENCOUNTER → 2024-05-27 13:36 | Outpatient (BNVA) | payer OTHER, SELFPAY | PROVIDERS: PCP Family Medicine; Visit Provider Internal Medicine | DX: I10 Essential (primary) hypertension (principal); G47.33 Obstructive sleep apnea (adult) (pediatric); E11.9 Type 2 diabetes mellitus without complications; F17.220 Nicotine dependence, chewing tobacco, uncomplicated; Z79.84 Long term (current) use of oral hypoglycemic drugs | CPT/HCPCS: 99213 ==

== ENCOUNTER 2024-06-08 14:33 | Outpatient (CLI) | payer OTHER, SELFPAY ==
--- NOTE | 2024-06-08 14:39 | XR_ITS ---
WS: [id number] XR KUB [id number] REASON FOR EXAM: NEPHROLITHIASIS FINDINGS: Moderate amount of stool in the right and transverse colon. No distended small bowel. No free air or retroperitoneal air. There is a calcific appearing density in the left abdomen overlying the left 12th rib. Potentially this could be an intrarenal calculus. Inferior and lateral to this calcific density there is a soft tissue mass density which is not identifiable on the most recent examination of 07/12/2014. CT scan of the abdomen and pelvis 01/07/2016 demonstrated multiple cysts in both kidneys but exophytic cyst in the lower pole of the left kidney. XR/XR KUB [id number] IMPRESSION: Equivocal findings for left renal calculus and left renal mass. An ultrasound o r CT scan of the abdomen would be reasonable follow-up if clinically warranted.
== END 2024-06-08 14:34 | disposition home or self-care (01) ==
LOC: RAD 14:36
PROVIDERS: PCP Family Medicine; Visit Provider Nurse Practitioner Family
DX: N20.0 Calculus of kidney (principal); K59.00 Constipation, unspecified; R93.5 Abnormal findings on diagnostic imaging of other abdominal regions, including retroperitoneum
CPT/HCPCS: 74018

== ENCOUNTER 2024-07-16 09:59 | Outpatient (CLI) | payer OTHER, SELFPAY ==
--- NOTE | 2024-07-16 10:05 | CT_ITS ---
WS: [id number] CT ABDOMEN AND PELVIS WITH AND WITHOUT CONTRAST HISTORY: NEPHROLITHIASIS/RENAL CYST TECHNIQUE: Unenhanced 5 mm axial imaging first performed through the abdomen. Post contrast imaging through the abdomen and pelvis. Oral contrast has not been provided. Sagittal and coronal reformats are submitted. All CT scans at [facility] use at least one of these dose optimization techniques: automated exposure control; mA and/or kV adjustment per patient size (includes targeted exams where dose is matched to clinical indication); or iterative reconstruction. CONTRAST: Omnipaque 350; 95 mL IV. DLP: 2785.50 mGy.cm COMPARISON: 01/07/2016 Mild dependent changes at the lung bases. Slight tree-in-bud airspace disease in the RIGHT middle lobe. Benign granuloma RIGHT lower lobe. Heart is normal size. Very small hiatal hernia. RIGHT kidney: 12.0 cm in length. Numerous low-attenuation masses throughout the kidney most consistent with cysts. The largest in the lower pole measures 5.3 x 4.6 x 5.2 cm and does not enhance. A few of the hypodensities are too small to characterize. There is no enhancing mass identified. Nonobstructing 2 mm calcification in the upper pole. No ureteral obstruction. There is a calcification in the distal RIGHT ureter measuring 4 x 3 mm. This calcification does appear to be within the ureter but there is contrast extending around the calcification on the delayed imaging. No uroepithelial lesion. LEFT kidney: 10.2 cm in length. Numerous low-attenuation masses throughout the kidney. Some of these cysts are complex but do not enhance. Some of this hypodensities are too small to characterize. Small cluster of calcifications in the lower pole are nonobstructing. The largest calcification is 4 mm. No ureteral obstruction. Normal size liver with focal fatty sparing along the falciform ligament. Normal spleen with granulomata. Normal pancreas and gallbladder. No adrenal mass. Mild atherosclerosis aorta. Normal mesenteric arteries. No GI tract obstruction. No adenopathy or ascites. Very small ventral abdominal wall hernia contains fat only. Urinary bladder is well distended. No intraluminal mass. Moderate spondylosis throughout the lumbar spine. CT/CT abdomen pelvis wo/w [id number] IMPRESSION: 1. Numerous bilateral renal cysts and complex cysts. No enhancing mass. 2. Distal RIGHT ureteral calcification measuring 4 x 3 mm. This calcification is not causing significant obstruction of the ureter. On delayed imaging contra st is noted extending around the calcification. This calcification could be emb edded in the wall of the ureter. 3. Mild tree in bud airspace disease in the RIGHT middle lobe. Correlate for m ild endobronchial pneumonia. 4. No GI tract obstruction. 5. Negative urinary bladder. No enhancing uroepithelial masses.
[2024-07-16] MEDS: iohexol 350 mg/mL 500 mL Btl (per mL) IV (10:24)
== END 2024-07-16 10:00 | disposition home or self-care (01) ==
PROVIDERS: PCP Family Medicine; Visit Provider Nurse Practitioner Family
DX: N20.0 Calculus of kidney (principal); N28.1 Cyst of kidney, acquired; N28.89 Other specified disorders of kidney and ureter; J98.4 Other disorders of lung; J84.10 Pulmonary fibrosis, unspecified; K44.9 Diaphragmatic hernia without obstruction or gangrene; D73.89 Other diseases of spleen; I70.0 Atherosclerosis of aorta; K43.9 Ventral hernia without obstruction or gangrene; M47.896 Other spondylosis, lumbar region
CPT/HCPCS: 74178

== ENCOUNTER → 2024-10-20 07:54 | Outpatient (BNVA) | payer OTHER, SELFPAY | PROVIDERS: PCP Family Medicine; Referring Provider Specialist; Visit Provider Specialist | DX: R56.9 Unspecified convulsions (principal) | CPT/HCPCS: 95819 ==

== ENCOUNTER 2025-01-01 14:35 | Outpatient (CLI) | payer OTHER, SELFPAY ==
--- NOTE | 2025-01-01 14:44 | US_ITS ---
WS: [id number] RENAL ULTRASOUND URINARY BLADDER ULTRASOUND HISTORY: RENAL CYST COMPARISON: RIGHT upper quadrant ultrasound 01/07/2016, renal ultrasound 08/30/2009 TECHNIQUE: 2-D and color Doppler imaging of the kidney submitted. Right kidney: 11.5 cm x 5.3 cm x 5.2 cm. Normal size kidney. No hydronephrosis. Simple cyst inferior pole is reidentified measures 4.8 x 5.0 x 4.5 cm. Cyst has increased in size since 2016. There is an additional lobulated cyst from the superior pole measuring 1.7 x 1.7 x 1.6 cm. No solid masses. Left kidney: 12.1 cm x 4.3 cm x 4.4 cm. No hydronephrosis. Cortical cyst lower pole 1.5 x 2.0 x 1.5 cm. Aorta: Mild atherosclerosis and ectasia. Urinary Bladder: Normal distention. Prevoid volume: 483 mL. Post void volume: 44 mL. US/US renal BI with PV bladder IMPRESSION: 1. No renal obstruction or solid mass. 2. Bilateral renal cysts as described above. Largest cyst lower pole RIGHT kid mabel measures 4.8 x 5.0 x 4.5 cm. 3. No significant post void residual in the urinary bladder.
== END 2025-01-01 14:36 | disposition home or self-care (01) ==
LOC: RAD 14:37
PROVIDERS: PCP Family Medicine; Visit Provider Nurse Practitioner Family
DX: N28.1 Cyst of kidney, acquired (principal)
CPT/HCPCS: 76770; 76857

== ENCOUNTER 2025-01-25 06:37 | Outpatient (CLI) | payer OTHER, SELFPAY | END 2025-01-25 06:38 | disposition home or self-care (01) | LOC: RAD 06:38 | PROVIDERS: PCP Family Medicine; Visit Provider Nurse Practitioner Family | DX: R06.02 Shortness of breath (principal); R05.9 Cough, unspecified | CPT/HCPCS: 93306 ==

== ENCOUNTER → 2025-03-16 08:14 | Outpatient (BNVA) | payer OTHER, SELFPAY | PROVIDERS: PCP Family Medicine; Referring Provider Nurse Practitioner Family; Visit Provider Orthopaedic Surgery | DX: M25.562 Pain in left knee (principal); G89.29 Other chronic pain | CPT/HCPCS: 73560; 73565; 99204 ==

== ENCOUNTER 2025-03-23 15:12 | Outpatient (CLI) | payer OTHER, SELFPAY ==
--- NOTE | 2025-03-23 15:15 | MR_ITS ---
WS: [id number] MRI LEFT KNEE NONCONTRAST TECHNIQUE: Axial PD, coronal PD fat sat, coronal PD, sagittal PD, and sagittal PD fat-sat images obtained. CLINICAL INFORMATION: Left knee pain COMPARISON: None. FINDINGS: Distal quadriceps and patella tendons are intact. Normal ACL and PCL. Mild tricompartmental arthritis. Mild chronic thinning of the medial and lateral meniscus. No acute appearing meniscal tears. 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 Medial and lateral patellar retinaculum appear intact. Normal popliteal fossa. Medial and lateral collateral ligaments appear intact. Normal popliteus. Normal bone marrow signal in the femoral condyles and tibial plateau. Fibula head appears normal. MR/MR knee LT wo con* [id number] IMPRESSION: 1. Mild tricompartment arthritis. 2. ACL and PCL appear intact. 3. Mild chronic thinning of the medial and lateral meniscus. No acute appearin g meniscal tears. 4. Grade II chondromalacia patella. 5. No other acute findings. Outbridge grading: grade III: partial-thickness cartilage loss with focal ulcer ation
== END 2025-03-23 15:13 | disposition home or self-care (01) ==
LOC: RAD 15:14
PROVIDERS: PCP Family Medicine; Visit Provider Orthopaedic Surgery
DX: M25.562 Pain in left knee (principal)
CPT/HCPCS: 73721

== ENCOUNTER → 2025-03-30 15:27 | Outpatient (BNVA) | payer OTHER, SELFPAY | PROVIDERS: PCP Family Medicine; Visit Provider Orthopaedic Surgery | DX: M23.322 Other meniscus derangements, posterior horn of medial meniscus, left knee (principal) | CPT/HCPCS: 99213 ==

== ENCOUNTER 2025-04-13 14:04 | Outpatient (RCR) | payer OTHER, SELFPAY | END 2025-04-28 23:59 | disposition home or self-care (01) | LOC: SPT 14:04 | PROVIDERS: Visit Provider Orthopaedic Surgery | DX: M25.562 Pain in left knee (principal) | CPT/HCPCS: 97110; 97161 ==